=== PATIENT | male | born 1985 | race Caucasian/White ===

== ENCOUNTER 2018-11-20 20:40 | Emergency (ER) | payer BC ==
[2018-11-20] MEDS ORDERED: Ketorolac 30 MG/ML SDV IVPUSH ONE (20:44)
[2018-11-20] MEDS ORDERED: Sodium Chloride 0.9% 1,000 ML IV ONE (20:44)
[2018-11-20] MEDS ORDERED: Ondansetron 4 MG/2 ML SDV IVPUSH ONE (20:44)
--- NOTE | 2018-11-20 20:52 | EDM.PDOC ---
<Arslan Ingram - Last Filed: 11/20/18 23:59> ED HPI GENERAL MEDICAL PROBLEM - General Chief Complaint: Abdominal Pain Stated Complaint: LOWER ABD PAIN Time Seen by Provider: 11/20/18 20:46 - Related Data Allergies Allergy/AdvReac Type Severity Reaction Status Date / Time No Known Allergies Allergy Verified 11/20/18 20:49 Home Meds: Home Meds . [No Known Home Meds] 06/09/14 [History] Course - Vital Signs Text/Narrative:: Patient CT scan was negative for evidence of appendicitis diverticulitis was noted be some bladder wall thickening and a small hiatal hernia. Patient's UA a 2-3 RBCs and will be sent for culture patient be put on ciprofloxacin 500 mg twice a day for 10 days and follow-up with his private medical doctor impression is #1 abdominal pain #2 rule out cystitis Last Recorded V/S: Last Vital Signs Temp 97.7 F 11/21/18 00:10 Pulse 65 11/21/18 00:10 Resp 18 11/21/18 00:10 BP 125/72 11/21/18 00:10 Pulse Ox 99 11/21/18 00:10 - Orders/Labs/Meds Labs: Laboratory Tests 11/20/18 11/20/18 11/20/18 Range/Units 20:45 20:58 20:58 WBC 8.96 (4.0-11.0) K/uL RBC 4.71 (4.50-5.90) M/uL Hgb 14.2 (13.0-17.0) g/dL Hct 41.7 (38.0-50.0) % MCV 88.5 (80.0-98.0) fL MCH 30.1 (27.0-32.0) pg MCHC 34.1 (31.0-37.0) g/dL RDW Std Deviation 40.7 (28.0-62.0) fl RDW Coeff of Elton 13 (11.0-15.0) % Plt Count 193 (150-400) K/uL MPV 10.00 (7.40-12.00) fL Neut % (Auto) 48.6 (48.0-80.0) % Lymph % (Auto) 37.2 (16.0-40.0) % Stone % (Auto) 7.9 (0.0-15.0) % Eos % (Auto) 5.7 (0.0-7.0) % Baso % (Auto) 0.6 (0.0-1.5) % Neut # (Auto) 4.4 (1.4-5.7) K/uL Lymph # (Auto) 3.3 H (0.6-2.4) K/uL Stone # (Auto) 0.7 (0.0-0.8) K/uL Eos # (Auto) 0.5 (0.0-0.7) K/uL Baso # (Auto) 0.1 (0.0-0.1) K/uL Nucleated RBC % 0.0 /100WBC Nucleated RBCs # 0 K/uL Sodium 141 (136-148) mmol/L Potassium 3.9 (3.5-5.1) mmol/L Chloride 107 (98-107) mmol/L Carbon Dioxide 24.4 (21.0-32.0) mmol/L BUN 14 (7.0-18.0) mg/dL Creatinine 0.9 (0.8-1.3) mg/dL Est Cr Clr Drug Dosing 134.40 mL/min Estimated GFR (MDRD) > 60.0 ml/min Glucose 101 (74-106) mg/dL Calcium 9.0 (8.5-10.1) mg/dL Total Bilirubin 0.2 (0.2-1.0) mg/dL AST 14 L (15-37) IU/L ALT 23 (14-63) IU/L Alkaline Phosphatase 83 (46-116) U/L Total Protein 7.2 (6.4-8.2) g/dL Albumin 4.0 (3.4-5.0) g/dL Globulin 3.2 (2.6-4.0) g/dL Albumin/Globulin Ratio 1.3 (0.9-1.6) Urine Color YELLOW Urine Appearance CLEAR Urine pH 6.0 (5.0-8.0) Ur Specific Delta 1.025 (1.001-1.035) Urine Protein NEGATIVE (NEGATIVE) mg/dL Urine Glucose (UA) NEGATIVE (NEGATIVE) mg/dL Urine Ketones NEGATIVE (NEGATIVE) mg/dL Urine Occult Blood TRACE-INTACT H (NEGATIVE) Urine Nitrite NEGATIVE (NEGATIVE) Urine Bilirubin NEGATIVE (NEGATIVE) Urine Urobilinogen 0.2 (<2.0) EU/dL Ur Leukocyte Esterase TRACE H (NEGATIVE) Urine RBC 2-3 (0-2/HPF) Urine WBC 0-1 (0-5/HPF) Ur Epithelial Cells OCCASIONAL (NONE-FEW) Urine Bacteria RARE (NEGATIVE) Meds: Medications Discontinued Medications Generic Name Dose Route Start Last Admin Trade Name Balbirq PRN Reason Stop Dose Admin Sodium Chloride 1,000 mls @ 999 mls/hr 11/20/18 20:44 11/20/18 21:02 Normal Saline IV 11/20/18 21:44 999 mls/hr STAT ONE Administration Iopamidol 100 ml 11/20/18 22:54 11/20/18 22:55 Isovue Multipack-370 (76%) IVPUSH 11/20/18 22:55 100 ml ONETIME ONE Administration Ketorolac Tromethamine 30 mg 11/20/18 20:44 11/20/18 21:02 Toradol IVPUSH 11/20/18 20:45 30 mg ONETIME ONE Administration Ondansetron HCl 4 mg 11/20/18 20:44 11/20/18 21:02 Zofran IVPUSH 11/20/18 20:45 4 mg ONETIME ONE Administration Departure - Departure Time of Disposition: 23:59 Disposition: Home, Self-Care 01 Condition: Good Clinical Impression: Abdominal pain Qualifiers: Abdominal location: right lower quadrant Qualified Code(s): R10.31 - Right lower quadrant pain - Discharge Information Instructions: Abdominal Pain, Adult Referrals: PCP,None [Primary Care Provider] - Forms: ED Department Discharge Additional Instructions: The following information is given to patients seen in the emergency department who are being discharged to home. This information is to outline your options for follow-up care. We provide all patients seen in our emergency department with a follow-up referral. The need for follow-up, as well as the timing and circumstances, are variable depending upon the specifics of your emergency department visit. If you don't have a primary care physician on staff, we will provide you with a referral. We always advise you to contact your personal physician following an emergency department visit to inform them of the circumstance of the visit and for follow-up with them and/or the need for any referrals to a consulting specialist. The emergency department will also refer you to a specialist when appropriate. This referral assures that you have the opportunity for follow-up care with a specialist. All of these measure are taken in an effort to provide you with optimal care, which includes your follow-up. Under all circumstances we always encourage you to contact your private physician who remains a resource for coordinating your care. When calling for follow-up care, please make the office aware that this follow-up is from your recent emergency room visit. If for any reason you are refused follow-up, please contact the [facility] Emergency Department at and asked to speak to the emergency department charge nurse. [facility] [address] [place] [address] [facility] [address] [place] [id number] 1. Follow up with Urology as we discussed about your previously diagnosed cyst/ hydrocele. 2. Please follow up with your primary care provider as we discussed. 3. Return to the ED as needed as discussed. #4 ciprofloxacin as prescribed <Samantha Obregon E - Last Filed: 11/23/18 12:55> ED HPI GENERAL MEDICAL PROBLEM - General Source of Information: Reports: Patient History Limitations: Reports: No Limitations - History of Present Illness INITIAL COMMENTS - FREE TEXT/NARRATIVE: HISTORY AND PHYSICAL: History of present illness: Patient is a 33-year-old male who presents to the emergency room with complaints of right lower quadrant pain. He states he does have some right testicular discomfort which she has had for approximately 2 weeks. He was seen and [facility] who did a testicular ultrasound. At that time he was diagnosed with a hydrocele and a cyst on the testicle. He does have a follow-up appointment with urology in the upcoming weeks. He states he is concerned today as he now has right lower quadrant pain. Patient states he does not have any concern of the right testicle. He has had no erythema or swelling. Denies any penile lesions or discharge. Patient denies any fever, chills, headache, change in vision, syncope or near syncope. Denies any chest pain, back pain, shortness of breath or cough. Denies any nausea, vomiting, diarrhea, constipation or dysuria. Has not noted any blood in urine or stool. Patient has been eating and drinking appropriately. Review of systems: As per history of present illness and below otherwise all systems reviewed and negative. Past medical history: As per history of present illness and as reviewed below otherwise noncontributory. Surgical history: As per history of present illness and as reviewed below otherwise noncontributory. Social history: See social history for further information Family history: As per history of present illness and as reviewed below otherwise noncontributory. Physical exam: General: Well-developed and well-nourished 33-year-old male. Alert and oriented. Nontoxic appearing and in no acute distress. HEENT: Atraumatic, normocephalic, pupils equal and reactive bilaterally, negative for conjunctival pallor or scleral icterus, mucous membranes moist, TMs normal bilaterally, throat clear, neck supple, nontender, trachea midline. No drooling or trismus noted. No meningeal signs. No hot potato voice noted. Lungs: Clear to auscultation, breath sounds equal bilaterally, chest nontender. Heart: S1S2, regular rate and rhythm without overt murmur Abdomen: Soft, nondistended, mild tenderness to the right lower quadrant going into the groin. No rebound tenderness noted. Negative for masses or hepatosplenomegaly. Negative for costovertebral tenderness. Pelvis: Stable nontender. Genitourinary: This was done with consent and a metal bonding helper at the bedside. Normal appearing external genitalia. No erythema or tenderness with palpation of bilateral testes. + cremesentaric reflex. Rectal: Deferred. Skin: Intact, warm, dry. No lesions or rashes noted. Extremities: Atraumatic, moves all extremities per self without difficulty or deficits, negative for cords or calf pain. Neurovascular unremarkable. Neuro: Awake, alert, oriented. Cranial nerves II through XII unremarkable. Cerebellum unremarkable. Motor and sensory unremarkable throughout. Exam nonfocal. Notes: Patient declines the ultrasound of the testicles at this time. We'll proceed with lab work and a CT of the abdomen and pelvis. Dr Ingram will follow labs and imaging results. Disposition patient appropriately. Diagnostics: CBC, CMP, UA, CT abdomen and pelvis Therapeutics: IV fluid, Toradol Impression: Abdominal Pain Plan: 1. Follow up with Urology as we discussed about your previously diagnosed cyst/ hydrocele. 2. Please follow up with your primary care provider as we discussed. 3. Return to the ED as needed as discussed. Definitive disposition and diagnosis as appropriate pending reevaluation and review of above. right groin area Pain Score (Numeric/FACES): 7 Past Medical History Gastrointestinal History: Reports: Hemorrhoids Musculoskeletal History: Reports: Other (See Below) Other Musculoskeletal History: right h and tendon reconnected - Past Surgical History GI Surgical History: Reports: Appendectomy, Colonoscopy Musculoskeletal Surgical History: Reports: Arthroscopic Knee Social & Family History - Caffeine Use Caffeine Use: Reports: Energy Drinks, Soda ED ROS GENERAL - Review of Systems Review Of Systems: ROS reveals no pertinent complaints other than HPI. ED EXAM, GI/ABD - Physical Exam Exam: See Below (See dictation) Course - Vital Signs Last Recorded V/S: Last Vital Signs Temp 97.7 F 11/21/18 00:10 Pulse 65 11/21/18 00:10 Resp 18 11/21/18 00:10 BP 125/72 11/21/18 00:10 Pulse Ox 99 11/21/18 00:10 - Orders/Labs/Meds Labs: Laboratory Tests 11/20/18 11/20/18 11/20/18 Range/Units 20:45 20:58 20:58 WBC 8.96 (4.0-11.0) K/uL RBC 4.71 (4.50-5.90) M/uL Hgb 14.2 (13.0-17.0) g/dL Hct 41.7 (38.0-50.0) % MCV 88.5 (80.0-98.0) fL MCH 30.1 (27.0-32.0) pg MCHC 34.1 (31.0-37.0) g/dL RDW Std Deviation 40.7 (28.0-62.0) fl RDW Coeff of Elton 13 (11.0-15.0) % Plt Count 193 (150-400) K/uL MPV 10.00 (7.40-12.00) fL Neut % (Auto) 48.6 (48.0-80.0) % Lymph % (Auto) 37.2 (16.0-40.0) % Stone % (Auto) 7.9 (0.0-15.0) % Eos % (Auto) 5.7 (0.0-7.0) % Baso % (Auto) 0.6 (0.0-1.5) % Neut # (Auto) 4.4 (1.4-5.7) K/uL Lymph # (Auto) 3.3 H (0.6-2.4) K/uL Stone # (Auto) 0.7 (0.0-0.8) K/uL Eos # (Auto) 0.5 (0.0-0.7) K/uL Baso # (Auto) 0.1 (0.0-0.1) K/uL Nucleated RBC % 0.0 /100WBC Nucleated RBCs # 0 K/uL Sodium 141 (136-148) mmol/L Potassium 3.9 (3.5-5.1) mmol/L Chloride 107 (98-107) mmol/L Carbon Dioxide 24.4 (21.0-32.0) mmol/L BUN 14 (7.0-18.0) mg/dL Creatinine 0.9 (0.8-1.3) mg/dL Est Cr Clr Drug Dosing 134.40 mL/min Estimated GFR (MDRD) > 60.0 ml/min Glucose 101 (74-106) mg/dL Calcium 9.0 (8.5-10.1) mg/dL Total Bilirubin 0.2 (0.2-1.0) mg/dL AST 14 L (15-37) IU/L ALT 23 (14-63) IU/L Alkaline Phosphatase 83 (46-116) U/L Total Protein 7.2 (6.4-8.2) g/dL Albumin 4.0 (3.4-5.0) g/dL Globulin 3.2 (2.6-4.0) g/dL Albumin/Globulin Ratio 1.3 (0.9-1.6) Urine Color YELLOW Urine Appearance CLEAR Urine pH 6.0 (5.0-8.0) Ur Specific Delta 1.025 (1.001-1.035) Urine Protein NEGATIVE (NEGATIVE) mg/dL Urine Glucose (UA) NEGATIVE (NEGATIVE) mg/dL Urine Ketones NEGATIVE (NEGATIVE) mg/dL Urine Occult Blood TRACE-INTACT H (NEGATIVE) Urine Nitrite NEGATIVE (NEGATIVE) Urine Bilirubin NEGATIVE (NEGATIVE) Urine Urobilinogen 0.2 (<2.0) EU/dL Ur Leukocyte Esterase TRACE H (NEGATIVE) Urine RBC 2-3 (0-2/HPF) Urine WBC 0-1 (0-5/HPF) Ur Epithelial Cells OCCASIONAL (NONE-FEW) Urine Bacteria RARE (NEGATIVE)
[2018-11-20 21:30] LABS: CHLORIDE,CL 107 mmol/L (98-107); SODIUM,NA 141 mmol/L (136-148)
[2018-11-20] MEDS ORDERED: Iopamidol 755 MG/ML 500 ML Multipack Bottle IVPUSH ONE (22:54)
--- NOTE | 2018-11-20 23:52 | CT ---
INDICATION: Right groin pain TECHNIQUE: CT abdomen and pelvis acquired with IV contrast. 100 mL of Isovue 370 administered. COMPARISON: None available FINDINGS: The study is performed during the delayed phase. Lower chest: A small hiatal hernia with thickening of the distal esophageal wall. Liver: Unremarkable. Spleen: Unremarkable. Pancreas: Unremarkable. Gallbladder and bile ducts: Unremarkable. Adrenal glands: Unremarkable. Kidneys: Unremarkable. GI tract: No bowel obstruction. The appendix is not seen. No significant pericolonic changes. Vascular structures: Unremarkable. Lymph nodes: Unremarkable. Miscellaneous: No free fluid or free air. Small fat containing periumbilical and left inguinal hernias. Pelvic Organs: Mild bladder wall thickening, partially related to under distension. Grossly unremarkable prostate. Bones: Unremarkable for age. IMPRESSION: No evidence of appendicitis, diverticulitis or bowel obstruction. Bladder wall thickening. Correlate with urinalysis for cystitis. A small hiatal hernia with thickening of the distal esophageal wall. Correlate for regional esophagitis. Dictated by Jose Carter MD @ 11/20/2018 11:50:59 PM Please note that all CT scans at this facility use dose modulation, iterative reconstruction, and/or weight-based dosing when appropriate to reduce radiation dose to as low as reasonably achievable. Dictated by: Jose Carter MD @ 11/20/2018 23:51:11 (Electronically Signed)
== END 2018-11-21 00:10 | disposition home or self-care (01) ==
LOC: MW.ED 20:40
DX: R10.31 Right lower quadrant pain (principal)
CPT/HCPCS: 36415; 74177; 80053; 81001; 85025; 87086; 96361; 96374; 96375; 99284; J1885; J2405; J7040; Q9967

== ENCOUNTER 2021-06-12 06:16 | Emergency (ER) | payer SELFPAY ==
[2021-06-12] MEDS ORDERED: Acetaminophen 325 MG Tab PO ONE (06:45)
--- NOTE | 2021-06-12 06:46 | EDM.PDOC ---
ED HPI GENERAL MEDICAL PROBLEM - General Chief Complaint: Upper Extremity Injury/Pain Stated Complaint: FELL- POSSIBLE RIGHT WRIST SPRAIN Time Seen by Provider: 06/12/21 06:45 - History of Present Illness INITIAL COMMENTS - FREE TEXT/NARRATIVE: 36-year-old male otherwise well presents with right wrist and hand pain after slipping and falling on the ice outside. Patient did not strike his head did not lose consciousness he has moderate pain in the right wrist that worsens with attempted range of motion. No pain in the elbow no pain in the shoulders no pain anywhere else in his body. Patient notes that he does have some degree of chronic pain in his hands and wrists he often wakes up with a numb he is to do a lot of pinching-like motions for work and suspects he is developed some degree of carpal tunnel. ROS: Neck: No neck stiffness. Respiratory: No shortness of breath. Cardiac: No chest pain. Gastrointestinal: No nausea, vomiting or abdominal pain. Musculoskeletal: Per HPI Neurologic: No headache. Right Wrist Pain Score (Numeric/FACES): 8 - Related Data Allergies Allergy/AdvReac Type Severity Reaction Status Date / Time iodine Allergy Rash Verified 06/12/21 06:32 Home Meds: Home Meds . [No Known Home Meds] 06/09/14 [History] Past Medical History HEENT History: Reports: None Cardiovascular History: Reports: None Respiratory History: Reports: None Gastrointestinal History: Reports: Hemorrhoids Genitourinary History: Reports: None Musculoskeletal History: Reports: Other (See Below) Other Musculoskeletal History: right h and tendon reconnected Neurological History: Reports: None Psychiatric History: Reports: Anxiety Endocrine/Metabolic History: Reports: None Hematologic History: Reports: None Immunologic History: Reports: None Oncologic (Cancer) History: Reports: None Dermatologic History: Reports: None - Infectious Disease History Infectious Disease History: Reports: None - Past Surgical History GI Surgical History: Reports: Appendectomy, Colonoscopy Musculoskeletal Surgical History: Reports: Arthroscopic Knee Social & Family History - Family History Family Medical History: No Pertinent Family History - Caffeine Use Caffeine Use: Reports: Energy Drinks, Soda - Recreational Drug Use Recreational Drug Use: No Review of Systems - Review of Systems Review Of Systems: See Below ED EXAM, GENERAL - Physical Exam Exam: See Below Free Text/Narrative:: General Appearance: No acute distress, appears comfortable HEENT: Normocephalic/atraumatic, sclera anicteric, mucous membranes moist Chest and Lungs: Normal work of breathing Cardiovascular: Intact distal perfusion Musculoskeletal: 2+ right radial pulse median radial and ulnar nerves intact and the right hand no anatomic snuffbox tenderness some tenderness along the dorsum of the wrist as well as over the ulnar styloid generalized tenderness throughout the hand. No clear deformity Neurologic: Awake, alert, no obvious deficits, moving all extremities Psychiatric: Appropriate, cooperative Course - Vital Signs Last Recorded V/S: Last Vital Signs Temp 97.3 F 06/12/21 06:57 Pulse 69 06/12/21 06:33 Resp 17 06/12/21 06:33 BP 144/92 H 06/12/21 06:33 Pulse Ox 97 06/12/21 06:33 - Orders/Labs/Meds Orders: Active Orders 24 hr Category Date Time Status Hand 2V Rt [CR] Stat Exams 06/12/21 06:45 Taken Wrist Comp Min 3V Rt [CR] Stat Exams 06/12/21 06:45 Taken Meds: Medications Discontinued Medications Generic Name Dose Route Start Last Admin Trade Name Adrianne PRN Reason Stop Dose Admin Acetaminophen 650 mg 06/12/21 06:45 06/12/21 06:57 Acetaminophen 325 Mg Tab PO 06/12/21 06:46 650 mg NOW ONE Administration Departure - Departure Time of Disposition: 07:21 Disposition: Home, Self-Care 01 Condition: Good Clinical Impression: Right wrist sprain - Discharge Information *PRESCRIPTION DRUG MONITORING PROGRAM REVIEWED*: Not Applicable *COPY OF PRESCRIPTION DRUG MONITORING REPORT IN PATIENT ZEV: Not Applicable Instructions: Wrist Sprain, Adult, Elastic Bandage and RICE Therapy Forms: ED Department Discharge Additional Instructions: Your symptoms should improve over the next couple days. I encourage you to wear the wrist splint when you are up and around be sure to take the Waylon wrap off at night. If your symptoms have not improved in the next couple days I encourage you to follow-up with the [facility] clinic [facility] at [address] [address] The following information is given to patients seen in the emergency department who are being discharged to home. This information is to outline your options for follow-up care. We provide all patients seen in our emergency department with a follow-up referral. The need for follow-up, as well as the timing and circumstances, are variable depending upon the specifics of your emergency department visit. If you don't have a primary care physician on staff, we will provide you with a referral. We always advise you to contact your personal physician following an emergency department visit to inform them of the circumstance of the visit and for follow-up with them and/or the need for any referrals to a consulting specialist. The emergency department will also refer you to a specialist when appropriate. This referral assures that you have the opportunity for follow-up care with a specialist. All of these measure are taken in an effort to provide you with optimal care, which includes your follow-up. Under all circumstances we always encourage you to contact your private physician who remains a resource for coordinating your care. When calling for follow-up care, please make the office aware that this follow-up is from your recent emergency room visit. If for any reason you are refused follow-up, please contact the Emergency D epartment at and asked to speak to the emergency department charge nurse. Sepsis Event Note (ED) - Focused Exam Vital Signs: Vital Signs Temp Temp Pulse Resp BP Pulse Ox 06/12/21 06:57 97.3 F 06/12/21 06:33 97.3 F 69 17 144/92 H 97 - My Orders Last 24 Hours: My Active Orders 06/12/21 06:45 Hand 2V Rt [CR] Stat Wrist Comp Min 3V Rt [CR] Stat - Assessment/Plan Last 24 Hours: My Active Orders 06/12/21 06:45 Hand 2V Rt [CR] Stat Wrist Comp Min 3V Rt [CR] Stat Assessment:: 36-year-old male presented with wrist sprain versus fracture after fall on outstretched hand on the ice x-ray pending Tylenol for pain. No other signs of injury. XR with no acute fracture on my preliminary interpretation. Recommended wrist splint for the next couple of days as well as RICE therapy. Return precautions discussed and understood.
--- NOTE | 2021-06-12 07:58 | CR ---
INDICATION: Pain. Patient fell. COMPARISON: none TECHNIQUE: Two-view right hand FINDINGS: The bones are anatomically aligned. There is no evidence of fracture, erosion or intrinsic bone lesion. The soft tissues appear normal. IMPRESSION: No fracture identified. Dictated by Arslan Gu MD @ 06/12/2021 7:57:55 AM (Electronically Signed)
--- NOTE | 2021-06-12 08:00 | CR ---
INDICATION: Pain. Patient fell COMPARISON: none TECHNIQUE: Three-view right wrist FINDINGS: The carpal bones are anatomically aligned. There is no evidence of fracture, erosion or intrinsic bone lesion. The soft tissues appear normal. IMPRESSION: No fracture identified. Dictated by Arslan Gu MD @ 06/12/2021 7:59:36 AM (Electronically Signed)
== END 2021-06-12 07:50 | disposition home or self-care (01) ==
LOC: MW.ED 06:16
DX: S63.501A Unspecified sprain of right wrist, initial encounter (principal); Z88.8 Allergy status to other drugs, medicaments and biological substances; W00.0XXA Fall on same level due to ice and snow, initial encounter
CPT/HCPCS: 73110; 73120; 99283; A9270

== ENCOUNTER 2021-11-08 20:01 | Emergency (ER) | payer OTHER | END 2021-11-08 21:50 | disposition home or self-care (01) | LOC: MW.ED 20:01 | DX: S62.634A Displaced fracture of distal phalanx of right ring finger, initial encounter for closed fracture (principal); W23.0XXA Caught, crushed, jammed, or pinched between moving objects, initial encounter | CPT/HCPCS: 73130-26-RT; 73130-RT; 99282; 99283 ==

== ENCOUNTER 2022-05-17 22:22 | Emergency (ER) | payer BC, OTHER ==
[2022-05-17] MEDS ORDERED: Sodium Chloride 0.9% 1,000 ML IV ONE (23:14)
[2022-05-17] MEDS ORDERED: Pantoprazole 40 MG in Sodium Chloride 0.9% 10 ML IVPUSH ONE (23:14)
[2022-05-17] MEDS ORDERED: Ondansetron 4 MG/2 ML SDV IVPUSH ONE (23:14)
[2022-05-17] MEDS ORDERED: Sodium Chloride 0.9% 10 ML Syringe FLUSH PRN (23:14)
[2022-05-17] MEDS ORDERED: Sodium Chloride 0.9% 2.5 ML Syringe FLUSH PRN (23:14)
[2022-05-17 23:57] LABS: CARBON DIOXIDE,CO2 27.2 mmol/L (21.0-32.0)
== END 2022-05-18 02:05 | disposition home or self-care (01) ==
LOC: MW.ED 22:22
DX: K92.0 Hematemesis (principal); R10.13 Epigastric pain; Z91.041 Radiographic dye allergy status; Z79.899 Other long term (current) drug therapy; Z90.49 Acquired absence of other specified parts of digestive tract
CPT/HCPCS: 36415; 80053; 83690; 85025; 96361; 96374; 99284; C9113; J2405; J3490; J7030

== ENCOUNTER 2022-05-25 10:21 | Emergency (ER) | payer BC ==
[2022-05-25] MEDS ORDERED: Acetaminophen/HYDROcodone 325-5 MG Tab PO ONE (10:59)
[2022-05-25] MEDS ORDERED: Alum Hydro/Mag Hydro/Simeth XS 15 ML, Metoclopramide 5 MG, Lidocaine 2% 5 ML PO ONE ×3 (11:00)
[2022-05-25 11:49] LABS: CARBON DIOXIDE,CO2 25.4 mmol/L (21.0-32.0); POTASSIUM,K 3.8 mmol/L (3.5-5.1)
== END 2022-05-25 12:53 | disposition home or self-care (01) ==
LOC: MW.ED 10:21
DX: R10.13 Epigastric pain (principal); Z91.041 Radiographic dye allergy status; Z79.899 Other long term (current) drug therapy; Z90.49 Acquired absence of other specified parts of digestive tract
CPT/HCPCS: 36415; 74176; 80053; 83690; 85025; 99284; A9270

== ENCOUNTER 2022-06-03 08:38 | Day surgery (SDC) | payer BC ==
[~2022-06-03 08:38] MED LIST: Lactated Ringers 1,000 ML IV SCH; Lidocaine 2% 5 ML SDV ONE; Propofol 200 MG/20 ML SDV ONE; fentaNYL 100 MCG/2 ML SDV ONE
[2022-06-03] MEDS ORDERED: Lactated Ringers 1,000 ML IV SCH (12:00)
== END 2022-06-03 12:55 | disposition home or self-care (01) ==
LOC: MW.SDS 08:38
PROVIDERS: ATTEND Surgery
DX: K29.00 Acute gastritis without bleeding (principal); K44.9 Diaphragmatic hernia without obstruction or gangrene; K22.70 Barrett's esophagus without dysplasia; K29.50 Unspecified chronic gastritis without bleeding; B96.81 Helicobacter pylori [H. pylori] as the cause of diseases classified elsewhere; K22.89 Other specified disease of esophagus; K20.90 Esophagitis, unspecified without bleeding; E66.9 Obesity, unspecified; F17.200 Nicotine dependence, unspecified, uncomplicated; Z91.013 Allergy to seafood; Z79.899 Other long term (current) drug therapy; Z90.49 Acquired absence of other specified parts of digestive tract; Z98.890 Other specified postprocedural states; Z68.34 Body mass index [BMI] 34.0-34.9, adult
CPT/HCPCS: 43239; J2704; J3010; J7120; 00731

== ENCOUNTER 2024-07-20 12:38 | Emergency (ER) | payer BC ==
[2024-07-20] MEDS: Lidocaine 4% 1 each Patch TOP STA (13:23)
== END 2024-07-20 13:24 | disposition home or self-care (01) ==
LOC: MW.ED 12:38
DX: M54.41 Lumbago with sciatica, right side (principal); J45.909 Unspecified asthma, uncomplicated; E66.9 Obesity, unspecified; Z90.49 Acquired absence of other specified parts of digestive tract; Z91.041 Radiographic dye allergy status; Z79.899 Other long term (current) drug therapy; Z68.36 Body mass index [BMI] 36.0-36.9, adult; Z75.8 Other problems related to medical facilities and other health care
CPT/HCPCS: 99283; A9270

== ENCOUNTER 2024-08-17 12:31 | Emergency (ER) | payer BC | END 2024-08-17 14:46 | disposition home or self-care (01) | LOC: MW.ED 12:31 | DX: J02.9 Acute pharyngitis, unspecified (principal); E66.9 Obesity, unspecified; Z90.49 Acquired absence of other specified parts of digestive tract; Z91.048 Other nonmedicinal substance allergy status; Z75.8 Other problems related to medical facilities and other health care; Z68.41 Body mass index [BMI] 40.0-44.9, adult | CPT/HCPCS: 87428-QW; 87651-QW; 99283 ==